=== PATIENT | male | born 1950 | race Caucasian/White ===

== ENCOUNTER 2021-10-24 05:47 | Inpatient (IN) ==
[2021-10-19 11:25] LABS: Bilirubin,Urine Negative (Negative); Blood, Urine Negative (Negative); Glucose,Urine (UA) Negative (Negative); Ketones,Urine Negative (Negative); Mucus,Urine Occasional /LPF (Occasional); Nitrite,Urine Negative (Negative); Protein,Urine Negative; RBC,Urine <1 /HPF (0-4); Urine Appearance CLEAR (Clear); Urine Color Yellow (Yellow); Urine Specific Gravity 1.011 (1.001-1.035); Urine Urobilinogen < 2.0 EU/DL (0.2-1.0)
[2021-10-19 11:26] LABS: Basophils # 0.1 10*3/uL (0.0-0.2); Basophils % 0.8 % (0.0-0.8); Eosinophils # 0.1 10*3/uL (0.0-0.87); Eosinophils % 1.2 % (0.00-10.9); Hematocrit 45.1 VOL% (42.0-52.0); Hemoglobin 14.6 GM/DL (14.0-18.0); Immature Granulocytes % 0.2 %; Immature Granulocytes Absolute 0.01 #; Lymphocytes # 2.7 10*3/uL (1.4-4.0); Lymphocytes % 40.7 % (21.2-54.2); Mean Corpuscular HGB Conc 32.4 GM/DL (32-36); Mean Corpuscular Volume 85.3 FL (87-102); Mean Platelet Volume 10.9 FL (9.6-12.0); Monocytes % 6.6 % (1.7-12.7); Neutrophils % 50.5 % (38.7-73.9); Platelet Count 397 T/CUMM (130-400); Red Blood Count 5.29 MC/CUMM (3.8-5.5); Red Cell Distribution Width 13.5 % (9.3-17.3); White Blood Count 6.6 T/CUMM (4-12)
[2021-10-19 11:39] LABS: INR 0.9; PT Patient Result 10.6 SECS (10.5-12.0); Partial Thromboplastin Time 26.3 SECS (23.8-32.1)
[2021-10-19 11:49] LABS: Albumin 4.3 G/DL (3.4-5.0); Bilirubin,Total 1.5 MG/DL (0.20-1.00); Calcium 9.9 MG/DL (8.5-10.1); Osmolality,Calculated 275.8 MOS/KG (273-304); Potassium 4.8 MMOL/L (3.5-5.1); Total Protein 7.7 G/DL (6.4-8.2)
[2021-10-24] MEDS ORDERED: VANCOMYCIN INJ 1,000 MG in SODIUM CHLORIDE 0.9% 250 ML IV ONE (06:30)
[2021-10-24] MEDS ORDERED: fentaNYL 100 MCG/2 ML VIAL ONE (06:45)
[2021-10-24] MEDS ORDERED: MIDAZOLAM 2 MG/2 ML VIAL ONE ×2 (06:45→08:58)
[2021-10-24] MEDS ORDERED: ROPIVACAINE 0.5% 30 ML VIAL ONE (06:58)
[2021-10-24] MEDS ORDERED: DEXAMETHASONE 4 MG/1 ML VIAL ONE ×2 (06:58→09:14)
[2021-10-24] MEDS ORDERED: BACITRACIN OINT 0.9 GM PACK TOP ONE (07:07)
[2021-10-24] MEDS ORDERED: DIAZEPAM 5 MG TABLET PO ONE (07:16)
[2021-10-24] MEDS ORDERED: FAMOTIDINE 20 MG TABLET PO ONE (07:16)
[2021-10-24] MEDS ORDERED: propofoL 200 MG/20 ML VIAL IV ONE (07:30)
[2021-10-24] MEDS ORDERED: LACTATED RINGERS 1,000 ML IV SCH (07:30)
[2021-10-24] MEDS ORDERED: LIDOCAINE 2% 5 ML VIAL ONE (07:30)
[2021-10-24] MEDS ORDERED: SODIUM CHLORIDE 0.9% 100 ML IV ONE (07:30)
[2021-10-24] MEDS ORDERED: GABAPENTIN 400 MG CAPSULE ONE (08:32)
[2021-10-24] MEDS ORDERED: GABAPENTIN 400 MG CAPSULE PO ONE (08:36)
[2021-10-24] MEDS ORDERED: ACETAMINOPHEN INJ 1,000 MG/100 ML VIAL IV ONE (09:03)
[2021-10-24] MEDS ORDERED: ZALEPLON 5 MG CAPSULE PO PRN (09:09)
[2021-10-24] MEDS ORDERED: MAGNESIUM HYDROXIDE SUSP 30 ML UDCUP PO PRN (09:09)
[2021-10-24] MEDS ORDERED: ONDANSETRON 4 MG/2 ML VIAL IV PRN (09:09)
[2021-10-24] MEDS ORDERED: MORPHINE 2 MG/1 ML SYRINGE IV PRN ×2 (09:09)
[2021-10-24] MEDS ORDERED: diphenhydrAMINE CAP 25 MG CAPSULE PO PRN (09:09)
[2021-10-24] MEDS ORDERED: BUPIVACAINE SPINAL 0.75% 2 ML AMP SPINAL ONE (09:14)
[2021-10-24] MEDS ORDERED: GLYCOPYRROLATE 0.4 MG/2 ML VIAL ONE (09:19)
[2021-10-24] MEDS ORDERED: ePHEDrine 50 MG/ML VIAL ONE (09:36)
[2021-10-24] MEDS ORDERED: TRANEXAMIC ACID 1,000 MG/10 ML VIAL ONE (09:50)
[2021-10-24] MEDS: LACTATED RINGERS 1,000 ML IV SCH (12:30)
[2021-10-24] MEDS: KETOROLAC 30 MG/1 ML VIAL IV SCH ×3 (12:37→22:11)
[2021-10-24] MEDS: DOCUSATE SODIUM 100 MG CAPSULE PO SCH (20:29)
[2021-10-25] MEDS: LACTATED RINGERS 1,000 ML IV SCH (01:22)
[2021-10-25] MEDS: KETOROLAC 30 MG/1 ML VIAL IV SCH (04:11)
[2021-10-25] MEDS ORDERED: FONDAPARINUX 2.5 MG/0.5 ML SYRINGE SUBCUT SCH (05:00)
[2021-10-25 05:56] LABS: Basophils % 0.2 % (0.0-0.8); Hematocrit 35.3 VOL% (42.0-52.0); Hemoglobin 11.2 GM/DL (14.0-18.0); Immature Granulocytes % 0.3 %; Immature Granulocytes Absolute 0.04 #; Lymphocytes # 1.8 10*3/uL (1.4-4.0); Lymphocytes % 13.8 % (21.2-54.2); Mean Corpuscular HGB Conc 31.7 GM/DL (32-36); Mean Corpuscular Volume 85.1 FL (87-102); Mean Platelet Volume 10.6 FL (9.6-12.0); Neutrophils % 76.7 % (38.7-73.9); Platelet Count 306 T/CUMM (130-400); Red Blood Count 4.15 MC/CUMM (3.8-5.5); Red Cell Distribution Width 13.5 % (9.3-17.3); White Blood Count 12.7 T/CUMM (4-12)
[2021-10-25 06:11] LABS: Calcium 8.8 MG/DL (8.5-10.1); Osmolality,Calculated 275.8 MOS/KG (273-304)
[2021-10-25 07:25] VITALS: BP 138/57
[2021-10-25] MEDS: DOCUSATE SODIUM 100 MG CAPSULE PO SCH (09:07)
== END 2021-10-25 11:20 | disposition home health service (06) | DRG 470 ==
LOC: N.OR 05:47 → N.SDSINP 05:49 → N.3E 09:02
PROVIDERS: ADMIT Orthopaedic Surgery; ATTEND Orthopaedic Surgery